=== PATIENT | male | born 1995 | race American Indian/Alaskan Native ===

== ENCOUNTER 2019-03-23 23:54 | Emergency (ER) | payer SELFPAY ==
[2019-03-24] MEDS ORDERED: LIDOCAINE-MPF (1%) 10 MG/1 ML VIAL 5 ML INFILTRATI ONE (02:17)
[2019-03-24] MEDS ORDERED: AZITHROMYCIN 1 GM ORAL PWDR PACKET PO ONE (02:17)
[2019-03-24 02:20] LABS: Alanine Aminotransferase 24 units/L (7-56); Albumin 4.6 g/dL (3.9-5); BUN/Creatinine Ratio 6; Blood Urea Nitrogen 5 mg/dL (9-20); Calcium 9.3 mg/dL (8.4-10.2); Hemolysis Index 21
--- NOTE | 2019-03-24 02:21 | Emergency Department Report ---
HPI - General Chief Complaint: Abdominal Pain Time Seen by Provider: 03/24/19 02:10 - HPI HPI: Room 44 The patient is a 23-year-old male presenting with chief complaint abdominal pain and dysuria. He said dysuria for approximately 2 weeks. Patient denies penile discharge or fever. Patient states he's had periumbilical abdominal pain for 2 days has been intermittent in nature. Patient and missed and nausea but denies vomiting or diarrhea. Patient denies history of fever. Patient denies sick contacts. Patient gives his pain is scored 6-7/10 Location: [See above] Duration: [See above] Quality: [See above] Severity: [See above] Timing: [See above] Context: [See above] Modifying factors: [See above] Associated signs and symptoms: [see above] ED Past Medical Hx - Past Medical History Previous Medical History?: No - Surgical History Past Surgical History?: No - Family History Family history: no significant - Social History Smoking Status: Never Smoker Substance Use Type: None (denies illicit drug use) - Medications Home Medications: Home Medications Medication Instructions Recorded Confirmed Last Taken Type Ciprofloxacin HCl [Ciprofloxacin 500 mg PO Q12HR #20 tab 03/24/19 Unknown Rx TAB] Ibuprofen [Motrin 800 MG tab] 800 mg PO Q8HR PRN #20 tablet 03/24/19 Unknown Rx Phenazopyridine [Pyridium] 200 mg PO TID #6 tab 03/24/19 Unknown Rx ED Review of Systems ROS: Stated complaint: ABD PAIN, PAINFUL URINATION Other details as noted in HPI Constitutional: denies: fever Eyes: denies: eye pain ENT: denies: throat pain Respiratory: no symptoms reported Cardiovascular: denies: chest pain Endocrine: no symptoms reported Gastrointestinal: abdominal pain, nausea. denies: vomiting, diarrhea Genitourinary: dysuria. denies: hematuria, discharge Musculoskeletal: denies: back pain Skin: rash Neurological: denies: headache Physical Exam - Physical Exam Vital Signs: Vital Signs 03/24/19 03/24/19 00:11 01:04 Temperature 98.7 F 98.7 F Pulse Rate 72 76 Respiratory 18 18 Rate Blood Pressure 149/76 149/76 O2 Sat by Pulse 100 100 Oximetry Physical Exam: GENERAL: The patient is well-developed well-nourished male sitting in chair not appearing to be in acute distress. [] HEENT: Normocephalic. Atraumatic. Extraocular motions are intact. Patient has moist mucous membranes. NECK: Supple. Trachea midline CHEST/LUNGS: Clear to auscultation. There is no respiratory distress noted. HEART/CARDIOVASCULAR: Regular. There is no tachycardia. There is no gallop rub or murmur. ABDOMEN: Abdomen is soft, nontender. Patient has normal bowel sounds. There is no abdominal distention. SKIN: There is a dry scaly rash over the right upper extremity and back possibly representing pityriasis rosacea. There is no diaphoresis. NEURO: The patient is awake, alert, and oriented. The patient is cooperative. The patient has normal speech MUSCULOSKELETAL: There is no evidence of acute injury. ED Course Vital Signs 03/24/19 03/24/19 00:11 01:04 Temperature 98.7 F 98.7 F Pulse Rate 72 76 Respiratory 18 18 Rate Blood Pressure 149/76 149/76 O2 Sat by Pulse 100 100 Oximetry ED Medical Decision Making - Lab Data Result diagrams: 03/24/19 01:38 03/24/19 01:38 Laboratory Tests 03/24/19 03/24/19 03/24/19 01:38 01:38 01:38 WBC 7.3 RBC 4.82 Hgb 14.6 Hct 43.9 MCV 91 MCH 30 MCHC 33 RDW 14.3 Plt Count 158 Lymph % (Auto) 35.4 H Lee % (Auto) 5.1 Eos % (Auto) 2.0 Baso % (Auto) 0.7 Lymph # 2.6 Lee # 0.4 Eos # 0.2 Baso # 0.0 Seg Neutrophils % 56.8 Seg Neutrophils # 4.2 Sodium 140 Potassium 3.9 Chloride 102.5 Carbon Dioxide 28 Anion Gap 13 BUN 5 L Creatinine 0.8 Estimated GFR > 60 BUN/Creatinine Ratio 6 Glucose 97 Calcium 9.3 Total Bilirubin 0.20 AST 22 ALT 24 Alkaline Phosphatase 63 Total Protein 7.3 Albumin 4.6 Albumin/Globulin Ratio 1.7 Lipase 25 Urine Color Urine Turbidity Urine pH Ur Specific [place] Urine Protein Urine Glucose (UA) Urine Ketones Urine Blood Urine Nitrite Urine Bilirubin Urine Urobilinogen Ur Leukocyte Esterase Urine WBC (Auto) Urine RBC (Auto) 03/24/19 01:43 WBC RBC Hgb Hct MCV MCH MCHC RDW Plt Count Lymph % (Auto) Lee % (Auto) Eos % (Auto) Baso % (Auto) Lymph # Lee # Eos # Baso # Seg Neutrophils % Seg Neutrophils # Sodium Potassium Chloride Carbon Dioxide Anion Gap BUN Creatinine Estimated GFR BUN/Creatinine Ratio Glucose Calcium Total Bilirubin AST ALT Alkaline Phosphatase Total Protein Albumin Albumin/Globulin Ratio Lipase Urine Color Yellow Urine Turbidity Slightly-cloudy Urine pH 6.0 Ur Specific [place] 1.016 Urine Protein <15 mg/dl Urine Glucose (UA) Neg Urine Ketones Neg Urine Blood Neg Urine Nitrite Neg Urine Bilirubin Neg Urine Urobilinogen < 2.0 Ur Leukocyte Esterase Mod Urine WBC (Auto) 124.0 H Urine RBC (Auto) 7.0 - Differential Diagnosis urethritis, UTI, pityriasis Critical care attestation.: If time is entered above; I have spent that time in minutes in the direct care of this critically ill patient, excluding procedure time. ED Disposition Clinical Impression: Dysuria, UTI (urinary tract infection) Disposition: TO HOME OR SELFCARE Is pt being admited?: No Does the pt Need Aspirin: No Condition: Stable Instructions: Dysuria (ED) Additional Instructions: Return to the emergency department should you develop worsening symptoms, inability to tolerate food or liquids, high fever or any other concerns Prescriptions: Ciprofloxacin HCl [Ciprofloxacin TAB] 500 mg PO Q12HR #20 tab Ibuprofen [Motrin 800 MG tab] 800 mg PO Q8HR PRN #20 tablet PRN Reason: Pain, Moderate (4-6) Phenazopyridine [Pyridium] 200 mg PO TID #6 tab Referrals: KYLE NELSON MD [Staff Physician] - 3-5 Days (Dr. Nelson is a vascular specialists. Please follow up with him for further evaluation) Time of Disposition: 03:05
[2019-03-24 02:45] LABS: Basophils % (Auto) 0.7 % (0.0-1.8); Eosinophils # (Auto) 0.2 K/mm3 (0.0-0.4); Hematocrit 43.9 % (35.5-45.6); Hemoglobin 14.6 gm/dl (11.8-15.2); Lymphocytes # (Auto) 2.6 K/mm3 (1.2-5.4); Lymphocytes % (Auto) 35.4 % (13.4-35.0); Mean Corpuscular HGB Conc 33 % (32-34); Mean Corpuscular Volume 91 fl (84-94); Monocytes # (Auto) 0.4 K/mm3 (0.0-0.8); Monocytes % (Auto) 5.1 % (0.0-7.3); Red Blood Count 4.82 M/mm3 (3.65-5.03); Red Cell Distribution Width 14.3 % (13.2-15.2)
[2019-03-24 02:50] LABS: Platelet Count 158 K/mm3 (140-440)
[2019-03-24 02:51] LABS: Bilirubin,Urine NEG (Negative); Blood,Urine NEG (Negative); Color,Urine Yellow (Yellow); Protein,Urine <15 mg/dL mg/dL (Negative); Urobilinogen,Urine < 2.0 mg/dL (<2.0)
[2019-03-24 03:42] VITALS: BP 122/69
== END 2019-03-24 03:20 | disposition home or self-care (01) ==
LOC: ED 23:54
DX: N39.0 Urinary tract infection, site not specified (principal); Z79.899 Other long term (current) drug therapy
CPT/HCPCS: 36415; 80053; 81001; 83690; 85025; 87086; 96372; 99283; J0696